=== PATIENT | female | born 2005 | race Caucasian/White ===

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

== ENCOUNTER 2025-04-18 10:13 | Emergency (ER) | payer OTHER, SELFPAY ==
[2025-04-18 10:14] VITALS: BP 159/96; PULSE 93; RESP 16; TEMP 36.6; O2SAT 99
[2025-04-18 10:43] LABS: Hematocrit 48.8 % (37-47); Hemoglobin 16.0 g/dL (12.0-15.0); Immature Granulocytes Count 0.010 X10^3/uL (0.0-0.0); Mean Corp Hgb Conc 32.8 g/dL (32-36); Mean Corpuscular Volume 94.0 fL (81-99); Mean Platelet Vol. 12.4 fl (6.2-12.0); NRBC Flagged by Analyzer 0 % (0-5); POSITIVE COUNT YES; Platelet Count 218 K/mm3 (150-450); RBC Distribution Width CV 12.8 % (11.6-14.6); RBC Distribution Width SD 44.1 fl (35.1-43.9); Red Blood Count 5.19 M/mm3 (4.2-5.4); White Blood Count 6.6 K/mm3 (4.4-11.0)
[2025-04-18 10:57] LABS: Differential Indicated SCAN CRITERIA MET
[2025-04-18 11:05] LABS: Internal QC Validated? YES +Cl - CLEAR BKGD; Pregnancy, Serum, hCG Quali. NEGATIVE Negative
[2025-04-18 11:14] LABS: Lipase 42 U/L (13-75)
[2025-04-18 11:18] LABS: AST(SGOT) 26 U/L (<=31); Alanine Aminotransfer ALT/SGPT 13 U/L (<=34); Albumin, Serum 4.7 g/dL (3.5-5.0); Alkaline Phosphatase 54 U/L (35-104); Anion Gap 16 (5-15); BUN 10 mg/dL (4-19); BUN/Creat Ratio 11.5 RATIO (10-20); Calcium,Total 10.2 mg/dL (7.6-11.0); Carbon Dioxide 21.6 mmol/L (21.0-32.0); Chloride 101 mmol/L (98-108); Globulin 3.9 g/dL (2.2-4.2); Glucose 98 mg/dL (70-99); Potassium 3.9 mmol/L (3.3-5.1)
[2025-04-18 11:50] LABS: Mucous, Urine 0 SEEN /hpf (<or=2+); Red Blood Cells-Urine 0 SEEN /hpf (0-5)
[2025-04-18 11:53] LABS: Color, Urine Straw (Yellow); Glucose, Dipstick Normal (Normal); Ketone-Dipstick Negative (Negative); Leukocyte Esterase-Dipstick Negative /ul (Negative); Nitrite-Dipstick Negative (Negative); Occult Blood-Urine Negative /ul (Negative); Protein-Dipstick Negative (Negative); Specific Gravity, Urine 1.010 (1.002-1.030); Urine Bilirubin Dipstick Negative (Negative)
[2025-04-18 11:55] LABS: Differential Comment SCANNED
[2025-04-18 12:04] LABS: Squamous Epithelial Cells - UA 0-5 SEEN /hpf (5-10)
[2025-04-18 12:13] VITALS: BP 132/89; PULSE 108; RESP 20; O2SAT 100
--- NOTE | 2025-04-18 13:11 | EDS_ITS ---
HPI HPI - GI History of Present Illness Chief Complaint: Abd Pain Abdominal Pain/Flank Pain Onset: Today Context: Sudden Onset Timing: Continuous Nausea/Vomiting/Emesis GI Symptom: Positive for Nausea; Negative for Vomiting Onset: Today Diarrhea/Melena/Hematochezia GI Symptom: Negative for Diarrhea, Melena or Hematochezia Associated Symptoms Associated Symptoms: Negative for Dysuria, Frequency or Hematuria Narrative Narrative: Patient presents with not feeling well over that began today. Patient had general anesthesia for an EGD yesterday. Patient states that today she has felt out of it. Patient admits to some blurred vision. Patient admits to some palpitations where she feels like her heart is racing. Patient admits to some nausea but denies any vomiting. Patient admits to some pain in her neck. Patient denies any fevers or chills. Patient admits to some mild discomfort in her abdomen. [facility] Medical History (Updated 04/18/25 @ 13:[address] Ham Enriquez, ) Eosinophilic esophagitis Able to perform paid work Routine sports physical exam Wears glasses history of broken bones/dislocated joints Asthma Allergy to cats Home Medications ?Medication ?Instructions ?Recorded ?Last Taken ?Type albuterol sulfate 2 mg tablet 2 mg PO ONCE 10/02/17 Un known History cetirizine 10 mg capsule (Zyrtec) 10 mg PO DAILY PRN 0 07/31/22 Unknown History montelukast 10 mg tablet 10 mg PO DAILY 07/31/22 Unkn own History (Singulair) pediatric multivitamin no.29 tab PO 07/31/22 Unknown H istory (Gummies [employer] Multivitamins chewable tablet) Allergy/AdvReac Type Severity Reaction Status Date / Time famotidine (From Pepcid) Allergy Severe Angioedema Verified 04/18/25 10:16 Social History Smoking Status: Never smoker alcohol intake: never ROS ROS ED Constitutional Constitutional ED: Denies chills or fever(s) Eyes Eyes: Reports blurry vision ENT ENT ED: Denies rhinorrhea or sore throat Cardiovascular Cardiovascular: Reports palpitations and racing heartbeat; Denies chest pain Respiratory/Chest Respiratory/Chest: Denies cough or dyspnea Gastrointestinal Gastrointestinal: Reports nausea; Denies vomiting Genitourinary Genitourinary ED: Denies dysuria or hematuria Musculoskeletal Musculoskeletal: Reports neck pain; Denies back pain Integumentary Denies abscess or rash Neurologic Neurologic: Denies headache(s) or weakness Allergic/Immunologic Allergic/Immunologic ED: Denies mouth swelling or urticaria EXAM Physical Exam Const Vital Signs: 04/18/25 10:14 04/18/25 12:13 Temperature 98 F Temperature Source Temporal Pulse Rate 93 108 H Respiratory Rate 16 20 H Blood Pressure 159/96 H 132/89 H Blood Pressure Mean 117 103 Pulse Ox 99 100 Oxygen Delivery Method Room Air Room Air Positive well nourished and well developed General Appearance ED: well developed and NAD HEENT Reports moist mucous membranes Neck supple and no JVD Resp normal respiratory effort and clear to auscultation bilaterally Cardio regular rate and regular rhythm GI non-tender and non-distended Palpation: soft Neuro CN's II-XII intact bilaterally, moves all extremities and no sensory deficits noted Sensorium / Orientation: alert Motor Exam: strength 5/5 throughout Psych mental status grossly normal MDM MDM MDM Narrative Medical decision making narrative: Differential diagnosis includes dehydration, electrolyte abnormality, viral illness, anesthesia side effect, postprocedure pain, pancreatitis, urinary tract infection, and . CBC will be obtained to assess for leukocytosis and anemia. Comprehensive metabolic profile will be obtained to assess for electrolyte abnormality and renal function. Lipase will be obtained to assess for pancreatitis. Serum hCG will be obtained to assess for . Ur inalysis will be obtained to assess for urinary tract infection and hematuria. Lab Data Attestation: I reviewed the patient's lab results. Lab results narrative: CBC was reviewed and was essentially within normal limits. Comprehensive metabolic profile was reviewed and was within normal limits. Lipase was reviewed and was normal at 42. Serum hCG was reviewed and was negative. Urinalysis was reviewed. There is no evidence of urinary tract infection or hematuria. Labs: Laboratory Results - last 24 hr 04/18/25 04/18/25 10:20 10:25 WBC 6.6 RBC 5.19 Hgb 16.0 H Hct 48.8 H MCV 94.0 MCH 30.8 MCHC 32.8 RDW Std Deviation 44.1 H RDW Coeff of Francine 12.8 Plt Count 218 MPV 12.4 H Immature Gran % (Auto) 0.200 Neut % (Auto) 47.3 Lymph % (Auto) 45.3 H Grayson % (Auto) 5.5 Eos % (Auto) 1.4 Baso % (Auto) 0.3 Absolute Neuts (auto) 3.1 Absolute Lymphs (auto) 2.99 Nucleated RBC % 0 Differential Comment SCANNED Sodium 139 Potassium 3.9 Chloride 101 Carbon Dioxide 21.6 Anion Gap 16 H BUN 10 Creatinine 0.87 Est GFR (MDRD) Non-Af 99 BUN/Creatinine Ratio 11.5 Glucose 98 Calcium 10.2 Total Bilirubin 0.54 AST 26 ALT 13 Alkaline Phosphatase 54 Total Protein 8.7 H Albumin 4.7 Globulin 3.9 Albumin/Globulin Ratio 1.2 Lipase 42 Serum , Qual NEGATIVE Urine Color Straw Urine Clarity Clear Urine pH 6.5 Ur Specific [place] 1.010 Urine Protein Negative Urine Glucose (UA) Normal Urine Ketones Negative Urine Occult Blood Negative Urine Nitrite Negative Urine Bilirubin Negative Urine Urobilinogen Normal Ur Leukocyte Esterase Negative Urine RBC 0 SEEN Urine WBC 0-5 SEEN Ur Squamous Epith Cells 0-5 SEEN Urine Bacteria 1+ Urine Mucus 0 SEEN Treatment and Re-Evaluation :: Patient was given morphine and Zofran. Patient was feeling somewhat better on reevaluation. Patient and mother were advised of findings. Patient is instructed to drink plenty of fluids. Patient was instructed to follow-up with her primary care physician in 5 to 7 days. Patient understood and was agreeable with the plan. All questions were answered. Discharge Plan Triage Chief Complaint: Abd Pain ED Provider: Ham Enriquez Dx/Rx/DC Orders Clinical Impression: Medication side effects, Eosinophilic esophagitis Instructions: Procedural Sedation Prescriptions: No Action albuterol sulfate 2 mg tablet 2 mg PO ONCE Zyrtec 10 mg capsule 10 mg PO DAILY PRN montelukast [Singulair] 10 mg tablet 10 mg PO DAILY Gumm[employer] Girls' Multivitamins Tablet,Chewable PO Primary Care Provider: Jose Hdez Referrals: Jose Hdez DO [Primary Care Provider, Pediatrics] - 5-7 Days Print Language: Persian Disposition Disposition: Home, Self Care
[2025-04-18 13:30] VITALS: BP 125/71; PULSE 96; RESP 18; TEMP 36.6; O2SAT 100
== END 2025-04-18 13:31 | disposition home or self-care (01) ==
PROVIDERS: Emergency Provider Emergency Medicine; PCP Pediatrics; Visit Provider Emergency Medicine
DX: K20.0 Eosinophilic esophagitis (principal); H53.8 Other visual disturbances; R00.2 Palpitations; J45.909 Unspecified asthma, uncomplicated; R11.0 Nausea; M54.2 Cervicalgia; T50.905A Adverse effect of unspecified drugs, medicaments and biological substances, initial encounter
CPT/HCPCS: 80053; 81001; 83690; 84703; 85025; 96374; 96375; 99284; A4216; J2405